=== PATIENT | female | born 1975 | race Caucasian/White ===

== ENCOUNTER 2017-04-02 17:08 | Emergency (ER) | payer OTHER ==
--- NOTE | 2017-04-02 17:10 | PDOC ---
Rapid Medical Evaluation Time Seen by Provider: 04/02/17 17:09 Medical Evaluation: Allergies Allergy/AdvReac Type Severity Reaction Status Date / Time No Known Allergies Allergy Verified 01/25/17 14:02 04/02/17 17:09 The patient presents with a chief complaint of: Redness to both eyes, with discharge yesterday. Got over the counter medication yesterday with little relief. Denies fevers, cold like symptoms, body aches I have performed a brief in-person evaluation of this patient; Pertinent physical exam findings: conjuctivitis b/l worse on R. EOMI, PERRLA I have ordered the following: nothing The patient will proceed to the ED for further evaluation.
[2017-04-02 17:12] VITALS: BP 132/83; PULSE 76; TEMP 98.4; BMI 23.8
--- NOTE | 2017-04-02 17:56 | PDOC ---
History of Present Illness - General Chief Complaint: Eye Problem Stated Complaint: EYE PROBLEM Time Seen by Provider: 04/02/17 17:09 History Source: Patient Exam Limitations: No Limitations - History of Present Illness Initial Comments: 41 y/o afebrile female c/o right eye redness since yesterday. The patient states her right eye was stuck shut yesterday with yellow crust. The inside of her eye was red. She bought OTC eye drops and have been using them but her job sent her here to make sure she's not contagious. She denies eye pain, SHEN, pressure behind eyes, changes to vision/hearing, eye trauma. Past History - Past Medical History Allergies/Adverse Reactions: Allergies Allergy/AdvReac Type Severity Reaction Status Date / Time No Known Allergies Allergy Verified 04/02/17 17:11 Home Medications: Ambulatory Orders Erythromycin 0.5% Eye Ointment [Erythromycin 0.5% Eye Ointment -] 1 applic OD TID #1 tube 04/02/17 Anemia: Yes COPD: No - Suicide/Smoking/Psychosocial Hx Smoking History: Never smoked Information on smoking cessation initiated: No Hx Alcohol Use: No Drug/Substance Use Hx: No Substance Use Type: None Review of Systems - Review of Systems Able to Perform ROS?: Yes Is the patient limited Korean proficient: No Constitutional: No: Symptoms Reported HEENTM: Yes: Other (Red right eye with crusting). No: Eye Pain, Blurred Vision , Recent change in vision Respiratory: No: Symptoms reported Neurological: No: Symptoms reported *Physical Exam - Vital Signs Last Vital Signs Temp Pulse Resp BP Pulse Ox 98.4 F 76 18 132/83 100 04/02/17 17:10 04/02/17 17:10 04/02/17 17:10 04/02/17 17:10 04/02/17 17:10 - Physical Exam Comments: Very well appearing, ambulatory female in NAD or obvious discomfort. General Appearance: Yes: Nourished, Appropriately Dressed HEENT: positive: EOMI, TJ, Normal ENT Inspection, Other (Erythematous right sclera. No discharge noted on lid margins). negative: Scleral Icterus (R), Scleral Icterus (L) Medical Decision Making - Medical Decision Making A/P: 41 y/o female with conjunctivitis of right eye. Will send rx to pharmacy for erythromycin ointment. Suggested she return to the ER with any worsening or concerning symptoms and avoid rubbing her affected eye. The patient verbalizes understanding of all instructions, has no further questions and is awaiting discharge. *DC/Admit/Observation/Transfer Diagnosis at time of Disposition: Conjunctivitis Qualifiers: Conjunctivitis type: acute Acute conjunctivitis type: bacterial Laterality: right Qualified Code(s): H10.31 - Unspecified acute conjunctivitis, right eye - Discharge Dispostion Disposition: HOME Condition at time of disposition: Good - Prescriptions Prescriptions: Erythromycin 0.5% Eye Ointment [Erythromycin 0.5% Eye Ointment -] 1 applic OD TID #1 tube - Referrals - Patient Instructions Printed Discharge Instructions: DI for Conjunctivitis Additional Instructions: Discharge Instructions: -A prescription for eye ointment was sent to your pharmacy; please use as prescribed -Try not to rub your eye -Follow up with your doctor within 1 week -Return to the ER with any worsening or concerning symptoms Instrucciones de descarga: -Krista receta para ungento para los ojos fue enviada a [facility] [employer]; por favor use segn lo prescrito -Intenta no frotarte el fabian -Siga con [facility] doctor dentro de 1 semana -Volver a la tacos de urgencias con cualquier empeoramiento o sntomas Print Language: SINGAPORE[place] - Post Discharge Activity
== END 2017-04-02 17:58 | disposition home or self-care (01) ==
LOC: JERFT 17:08
DX: H10.31 Unspecified acute conjunctivitis, right eye (principal)
CPT/HCPCS: 99281-25

== ENCOUNTER 2021-09-03 18:20 | Emergency (ER) | payer OTHER ==
[2021-09-03 18:45] VITALS: BP 127/76; BMI 26.9
[2021-09-03] MEDS ORDERED: ACETAMINOPHEN 1000 MG/100 ML BAG IVPB ONE (20:59)
[2021-09-03] MEDS ORDERED: CLINDAMYCIN 600MG PREMIX IVPB 600 MG/50 ML BAG IVPB ONE ×2 (21:00→21:18)
[2021-09-03] MEDS ORDERED: KETOROLAC TROMETHAMINE 30 MG/1 ML VIAL IVPUSH ONE (21:00)
[2021-09-03] MEDS ORDERED: KETOROLAC TROMETHAMINE 30 MG/1 ML VIAL ONE (21:18)
[2021-09-03] MEDS ORDERED: ACETAMINOPHEN INJECTION 100 ML IVPB ONE (21:18)
[2021-09-03 21:54] LABS: BASO % 0.4 % (0-2.0); EOS % 0.2 % (0-4.5); HEMATOCRIT 37.7 % (32.4-45.2); HEMOGLOBIN 12.4 GM/dL (10.7-15.3); LYMPH % 19.9 % (8-40); MCH 29.8 pg (25.7-33.7); MCHC 32.9 g/dl (32.0-36.0); MEAN CELL VOLUME 90.4 fl (80-96); MEAN PLT VOLUME 8.1 fl (7.5-11.1); MONO % 8.9 % (3.8-10.2); NEUT % 70.6 % (42.8-82.8); PLATELET COUNT 220 10^3/uL (134-434); RBC 4.17 M/mm3 (3.60-5.2); RDW 13.9 % (11.6-15.6); WHITE BLOOD COUNT 7.1 K/mm3 (4.0-10.0)
[2021-09-03 22:21] LABS: ALBUMIN 3.6 g/dl (3.4-5.0); CALCIUM 9.6 mg/dL (8.5-10.1)
[2021-09-03 22:22] LABS: BLOOD UREA NITROGEN 9.9 mg/dL (7-18)
[2021-09-03 22:25] LABS: CREATININE 0.7 mg/dL (0.55-1.3)
[2021-09-03 22:26] LABS: BILIRUBIN,TOTAL 0.4 mg/dL (0.2-1); TOT PROT 7.4 g/dl (6.4-8.2)
[2021-09-03 23:12] VITALS: PULSE 80; TEMP 98.3
[2021-09-06 15:07] LABS: BABESIA MICROTI ANTIBODY IGG <1:10 (Neg:<1:10); BABESIA MICROTI ANTIBODY IGM <1:10 (Neg:<1:10)
== END 2021-09-03 23:28 | disposition home or self-care (01) ==
LOC: JER 18:20
PROC: 3E0333Z Introduction of Anti-inflammatory into Peripheral Vein, Percutaneous Approach (ICD-10-PCS; principal; 2021-09-03)
PROC: 3E03329 Introduction of Other Anti-infective into Peripheral Vein, Percutaneous Approach (ICD-10-PCS; 2021-09-03)
PROC: 3E0333Z Introduction of Anti-inflammatory into Peripheral Vein, Percutaneous Approach (ICD-10-PCS; 2021-09-03)
DX: L03.116 Cellulitis of left lower limb (principal)
CPT/HCPCS: 36415; 80053; 85025; 86618; 86753; 99284-25

== ENCOUNTER 2024-02-02 06:45 | Emergency (ER) | payer OTHER ==
[2024-02-02 06:50] VITALS: BP 111/70; PULSE 63; RESP 18; TEMP 97.6; BMI 26.5
[2024-02-02] MEDS ORDERED: ACETAMINOPHEN 500 MG TABLET (FP) ONE (07:36)
[2024-02-02] MEDS: ACETAMINOPHEN 500 MG TABLET (FP) PO ONE (07:43)
== END 2024-02-02 10:12 | disposition home or self-care (01) ==
LOC: JER 06:45 → JERFT 06:45
PROC: 2W3SX1Z Immobilization of Right Foot using Splint (ICD-10-PCS; principal; 2024-02-02)
DX: S92.351A Displaced fracture of fifth metatarsal bone, right foot, initial encounter for closed fracture (principal); X50.1XXA Overexertion from prolonged static or awkward postures, initial encounter
CPT/HCPCS: 29515; 73610-TC-RT-FY; 73630-TC-RT-FY; 99283-25